=== PATIENT | male | born 1995 | race Caucasian/White ===

== ENCOUNTER 2019-10-19 23:29 | Emergency (ER) | payer BC ==
[~2019-10-19] VITALS: Ht 180.3 cm; Wt 75.0 kg
[~2019-10-19 23:29] MED LIST: NO HOME MEDICATIONS
[2019-10-20 00:08] LABS: COLLECTION METHOD CLEAN CATCH
[2019-10-20 00:15] LABS: PH 7 (5-8); SQUAMOUS EPITHELIAL None Seen /hpf; URINE APPEARANCE Cloudy; URINE BACTERIA Rare /hpf; URINE BILIRUBIN Negative (NEGATIVE); URINE BLOOD Negative (NEGATIVE); URINE COLOR Yellow; URINE GLUCOSE Negative (NEGATIVE); URINE KETONE Negative (NEGATIVE); URINE LEUKOCYTE ESTERASE Negative (NEGATIVE); URINE NITRATE Negative (NEGATIVE); URINE PROTEIN(semi-quant) Negative (NEGATIVE); URINE RBC 0-2 /hpf; URINE UROBILINOGEN Negative (NEGATIVE)
[2019-10-20] MEDS ORDERED: DOXYCYCLINE 10100 MG PO (01:49)
[2019-10-20 02:14] VITALS: BP 122/76; PULSE 86; TEMP 98.4
== END 2019-10-20 02:14 | disposition home or self-care (01) ==
LOC: COL.ER 23:29
PROVIDERS: Emergency Medicine
DX: N50.811 Right testicular pain (principal)
CPT/HCPCS: J0696